=== PATIENT | female | born 1955 | race African-American/Black ===

== ENCOUNTER 2017-04-11 10:10 | Inpatient (IN) | payer OTHER ==
[~2017-04-11] VITALS: Ht 172.7 cm; Wt 113.9 kg
[2017-04-11] MEDS ORDERED: ONDANSETRON HCL 4MG/2ML VIAL IV STA (10:22)
[2017-04-11] MEDS ORDERED: ASPIRIN 81MG TABLET PO STA (10:22)
[2017-04-11] MEDS ORDERED: MORPHINE SULFATE 4 MG/ML CPJ (NOT FOR IM USE) IV STA (10:22)
[2017-04-11 11:10] LABS: BASOPHILS % 0.4 % (0.0-2.0); HEMATOCRIT. 41.9 % (36.0-48.0); HEMOGLOBIN. 14.6 g/dL (12.0-16.0); MEAN CORPUSCULAR HEMOGLOBIN 33.6 pg (28.0-32.0); MEAN CORPUSCULAR VOLUME 96.5 fL (81.0-99.0); MEAN PLATELET VOLUME 8.1 fl (7.4-10.4); MONOCYTES % 4.9 % (2.0-8.0); NEUTROPHILS % 56.7 % (40.0-76.0); PLATELET 298 x1000/uL (130-400); RED BLOOD CELL COUNT 4.35 mill/uL (4.2-5.4); RED CELL DISTRIBUTION WIDTH 13.9 % (11.6-14.6)
[2017-04-11 11:21] LABS: CARBON DIOXIDE 32 mEq/L (21-32); CHLORIDE 100 mEq/L (98-107); TROPONIN I < 0.02 ng/mL (0.00-0.04)
[2017-04-11 11:24] LABS: D-DIMER 0.95 mg/L FEU (<0.50); PARTIAL THROMBOPLASTIN TIME 26.4 sec (23.4-31.0); PROTHROMBIN TIME 10.9 sec (9.4-11.6)
[2017-04-11] MEDS ORDERED: SODIUM CHLORIDE 0.9% 1,000 ML IV ONE (13:02)
[2017-04-11] MEDS ORDERED: IOHEXOL-350 100 ML BOTTLE ONE (14:17)
[2017-04-11] MEDS ORDERED: LISI-648 PO (16:35)
[2017-04-11] MEDS ORDERED: ASPI-864 PO (16:38)
[2017-04-11] MEDS ORDERED: BALS1.1T PO (16:39)
[2017-04-11] MEDS ORDERED: TRAZ-129 PO (16:39)
[2017-04-11] MEDS ORDERED: NORT10CA PO (16:40)
[2017-04-11] MEDS ORDERED: OMEP20CA10 PO (16:40)
[2017-04-11 17:00] VITALS: BP 119/64
[2017-04-11 17:13] VITALS: BP 119/64
[2017-04-11 20:00] VITALS: BP 116/70
[2017-04-11] MEDS ORDERED: ACETAMINOPHEN 325MG TABLET PO PRN (20:45)
[2017-04-11] MEDS ORDERED: ONDANSETRON HCL 4MG/2ML VIAL IV PRN (20:45)
[2017-04-11] MEDS ORDERED: MORPHINE SULFATE 4 MG/ML CPJ (NOT FOR IM USE) IV PRN (20:45)
[2017-04-11] MEDS ORDERED: DOCUSATE SODIUM 100MG CAPSULE PO PRN (20:45)
[2017-04-11] MEDS ORDERED: ZOLPIDEM TARTRATE 5MG TABLET PO PRN (21:00)
[2017-04-11] MEDS: HYDROCODONE/ACETAMINOPHEN 5/325MG TABLET PO PRN (21:25)
[2017-04-11] MEDS ORDERED: TRAZODONE HCL 50MG TABLET PO SCH (21:30)
[2017-04-12] VITALS (7 sets, daily range): BP systolic 92–131; BP diastolic 50–93
[2017-04-12 03:09] LABS: *AMPHETAMINES SCREEN URINE NEGATIVE (NEGATIVE); *BARBITURATES SCREEN URINE NEGATIVE (NEGATIVE); *BENZODIAZEPINES SCREEN URINE NEGATIVE (NEGATIVE); *COCAINE SCREEN URINE NEGATIVE (NEGATIVE); CANNABINOID URINE SCREEN NEGATIVE (NEGATIVE); METHADONE URINE SCREEN NEGATIVE (NEGATIVE); OPIATES URINE SCREEN PRESUMTIVE POSITIVE (NEGATIVE); PHENCYCLIDINE URINE SCREEN NEGATIVE (NEGATIVE)
[2017-04-12] MEDS: HYDROCODONE/ACETAMINOPHEN 5/325MG TABLET PO PRN ×2 (06:48→17:21)
[2017-04-12] MEDS ORDERED: OMEPRAZOLE 20MG CAPSULE EXTENDED RELEASE PO SCH (07:10)
[2017-04-12 07:53] LABS: BASOPHILS % 0.5 % (0.0-2.0); EOSINOPHILS % 2.9 % (0.0-5.0); HEMATOCRIT. 39.6 % (36.0-48.0); HEMOGLOBIN. 13.5 g/dL (12.0-16.0); LYMPHOCYTES % 30.3 % (20.0-50.0); MEAN CORPUSCULAR HEMOGLOBIN 33.4 pg (28.0-32.0); MEAN CORPUSCULAR VOLUME 97.6 fL (81.0-99.0); MEAN PLATELET VOLUME 7.7 fl (7.4-10.4); MONOCYTES % 6.8 % (2.0-8.0); NEUTROPHILS % 59.5 % (40.0-76.0); PLATELET 264 x1000/uL (130-400); RED BLOOD CELL COUNT 4.05 mill/uL (4.2-5.4); RED CELL DISTRIBUTION WIDTH 13.8 % (11.6-14.6)
[2017-04-12] MEDS: HYDROCHLOROTHIAZIDE 12.5MG CAPSULE PO SCH ×2 (08:16→16:58)
[2017-04-12] MEDS ORDERED: CARV20CP PO (08:20)
[2017-04-12] MEDS ORDERED: HYDR-4134 PO (08:20)
[2017-04-12] MEDS ORDERED: HYDR-4133 PO (08:20)
[2017-04-12 08:51] LABS: HDL CHOLESTEROL 66 mg/dL (40-59); LDL CHOLESTEROL 112 mg/dL (5-100); TROPONIN I < 0.02 ng/mL (0.00-0.04)
[2017-04-12] MEDS ORDERED: HYDROCHLOROTHIAZIDE 25MG TABLET PO SCH (09:00)
[2017-04-12] MEDS ORDERED: LISINOPRIL 20MG TABLET PO SCH ×2 (09:00)
[2017-04-12] MEDS ORDERED: ASPIRIN 81MG EC TABLET PO SCH (09:00)
[2017-04-12] MEDS ORDERED: CARVEDILOL 25MG TABLET PO SCH (10:00)
[2017-04-12] MEDS ORDERED: NORTRIPTYLINE HCL 10MG CAPSULE PO SCH (17:00)
[2017-04-12] MEDS ORDERED: MEDICATION NOT ON FORMULARY EA (Nortriptyline Hcl 1 CAP) PO SCH (17:00)
[2017-04-12] MEDS ORDERED: ATORVASTATIN CALCIUM 40MG TABLET PO SCH (21:00)
== END 2017-04-12 21:21 | disposition short-term general hospital (02) | DRG 313 ==
LOC: EDBD 10:10 → ER 10:40 → ENRESERV 13:15 → 8WST 14:08 → EDBEDREQ 14:10
PROVIDERS: ADMIT Family Medicine Adult Medicine; ATTEND Family Medicine Adult Medicine
DX: R07.89 Other chest pain (principal); I25.10 Atherosclerotic heart disease of native coronary artery without angina pectoris; I11.9 Hypertensive heart disease without heart failure; E66.9 Obesity, unspecified; E78.5 Hyperlipidemia, unspecified; K21.9 Gastro-esophageal reflux disease without esophagitis; Z79.82 Long term (current) use of aspirin; Z79.899 Other long term (current) drug therapy; Z82.49 Family history of ischemic heart disease and other diseases of the circulatory system; Z87.891 Personal history of nicotine dependence; Z90.49 Acquired absence of other specified parts of digestive tract; Z95.1 Presence of aortocoronary bypass graft; Z68.38 Body mass index [BMI] 38.0-38.9, adult
CPT/HCPCS: 36415; 71010; 71275; 80048; 80061; 80305; 83880; 84484; 85025; 85379; 85610; 85730; 93005; 93306; 96361; 96374; 96375; 99285; G0482; J2270; J2405; J7030; Q9967